=== PATIENT | female | born 1960 | race Caucasian/White ===

== ENCOUNTER → 2020-07-21 | Outpatient (CLI) | payer MEDICARE, OTHER ==
[~2020-07-21] MED LIST: ASPIRIN 325MG325 MG PO; ATORVASTATIN CA20 MG PO; BACTROBAN OINT22 GM TD; CLINDAMYCIN HC300 MG PO; COREG 25MG TAB25 MG PO; CYCLOBENZAPRINE10 MG PO; DICYCLOMINE HCL20 MG PO; ECOTRIN81 MG PO; HYDROCODON-ACE1 EAC2 PO; HYDROCODON-ACE1 EAC4 PO; K-TAB ER20 MEQ PO; LASIX40 MG PO; LEVOFLOXACIN500 MG PO; MAGNESIUM400 M2 PO; NITROSTAT0.4 MG SL; PERCOCET 5-3251 EACH PO; PERCOCET 5/325 T1 EA PO; PLAVIX 75 MG TA75 MG PO; PRINIVIL20 MG PO; PROMETHAZINE12.5 M1 PO; RANEXA500 MG PO; REMERON15 MG PO; VANCOMYCIN HCL1.5 GM IV; VITAMIN D210 MCG PO; XANAX1 MG PO; XARELTO10 MG PO; ZOFRAN 4 MG TAB4 MG PO; ZOFRAN ODT4 MG PO
[2020-07-21 12:52] LABS: HEMOGLOBIN 12.9 gm/dl (12.3-15.3); RED BLOOD COUNT 3.81 M/UL (4.00-5.10); WHITE BLOOD COUNT 6.2 K/UL (4.5-11.0)
== END ==
LOC: LAB 11:56
PROVIDERS: Internal Medicine Cardiovascular Disease
DX: Z45.02 Encounter for adjustment and management of automatic implantable cardiac defibrillator (principal); I25.10 Atherosclerotic heart disease of native coronary artery without angina pectoris; I50.22 Chronic systolic (congestive) heart failure; I10 Essential (primary) hypertension; I25.5 Ischemic cardiomyopathy; R91.8 Other nonspecific abnormal finding of lung field; Z20.822 Contact with and (suspected) exposure to COVID-19
CPT/HCPCS: 36415; 71046; 80048; 85025; U0003

== ENCOUNTER → 2020-07-23 | Outpatient (CLI) | payer MEDICARE, OTHER | LOC: CATH 09:51 | DX: Z45.02 Encounter for adjustment and management of automatic implantable cardiac defibrillator (principal); I25.5 Ischemic cardiomyopathy; I11.0 Hypertensive heart disease with heart failure; I50.22 Chronic systolic (congestive) heart failure; I49.5 Sick sinus syndrome; I25.10 Atherosclerotic heart disease of native coronary artery without angina pectoris; F17.210 Nicotine dependence, cigarettes, uncomplicated; E78.5 Hyperlipidemia, unspecified; I25.2 Old myocardial infarction; J44.9 Chronic obstructive pulmonary disease, unspecified; F11.20 Opioid dependence, uncomplicated; F32.9 Major depressive disorder, single episode, unspecified; K21.9 Gastro-esophageal reflux disease without esophagitis; Z95.1 Presence of aortocoronary bypass graft; Z98.1 Arthrodesis status; Z98.890 Other specified postprocedural states; Z88.5 Allergy status to narcotic agent; Z88.0 Allergy status to penicillin; Z88.1 Allergy status to other antibiotic agents; Z79.82 Long term (current) use of aspirin; Z79.02 Long term (current) use of antithrombotics/antiplatelets; Z79.899 Other long term (current) drug therapy | CPT/HCPCS: 93641; 99152; 99153; C1721; J1200; J1644; J2250; J3010; J3370; J7040; J7050 ==

== ENCOUNTER → 2020-08-30 | Outpatient (CLI) | payer MEDICARE, OTHER ==
[2020-08-30 17:09] LABS: HEMOGLOBIN 12.1 gm/dl (12.3-15.3); RED BLOOD COUNT 3.69 M/UL (4.00-5.10); WHITE BLOOD COUNT 5.1 K/UL (4.5-11.0)
--- NOTE | 2020-08-30 17:55 | NUR ---
18g x 8 cm midline placed in the right basilic vein. Aspirates and flushes well. PICC line ordered changed to midline per conversation with Dr. Bnigham. Labs reviewed.
== END ==
LOC: OPSV 15:33 → LAB 15:33 → EROP 15:33
PROVIDERS: Internal Medicine Cardiovascular Disease
DX: T82.7XXA Infection and inflammatory reaction due to other cardiac and vascular devices, implants and grafts, initial encounter (principal); I11.0 Hypertensive heart disease with heart failure; I50.22 Chronic systolic (congestive) heart failure; Z86.14 Personal history of Methicillin resistant Staphylococcus aureus infection
CPT/HCPCS: 80048; 85025; 87040; C1751

== ENCOUNTER → 2020-08-31 | Outpatient (CLI) | payer MEDICARE, OTHER | LOC: CATH 12:22 | DX: T81.30XA Disruption of wound, unspecified, initial encounter (principal); G89.18 Other acute postprocedural pain; I11.0 Hypertensive heart disease with heart failure; I50.22 Chronic systolic (congestive) heart failure; I25.5 Ischemic cardiomyopathy; I25.2 Old myocardial infarction; I25.10 Atherosclerotic heart disease of native coronary artery without angina pectoris; I49.5 Sick sinus syndrome; E78.5 Hyperlipidemia, unspecified; J44.9 Chronic obstructive pulmonary disease, unspecified; K21.9 Gastro-esophageal reflux disease without esophagitis; M19.90 Unspecified osteoarthritis, unspecified site; F11.20 Opioid dependence, uncomplicated; F17.210 Nicotine dependence, cigarettes, uncomplicated; Z20.822 Contact with and (suspected) exposure to COVID-19; Z95.1 Presence of aortocoronary bypass graft; Z95.810 Presence of automatic (implantable) cardiac defibrillator | CPT/HCPCS: 33223; 87070; 87075; 87205; 93641; 99152; 99153; J1170; J1200; J2250; J2270; J3010; J3370; J7040; J7050; U0002 ==

== ENCOUNTER → 2020-09-16 | Outpatient (CLI) | payer MEDICARE, OTHER | LOC: OPSV 14:17 | DX: Z45.02 Encounter for adjustment and management of automatic implantable cardiac defibrillator (principal) | CPT/HCPCS: G0463 ==

== ENCOUNTER 2020-11-11 17:35 | Inpatient (IN) | payer MEDICARE, OTHER ==
[~2020-11-11] VITALS: Ht 157.5 cm; Wt 59.0 kg
[~2020-11-11 17:35] MED LIST changes: -HYDROCODON-ACE1 EAC2 PO; -ZOFRAN 4 MG TAB4 MG PO
[2020-11-11 19:00] LABS: HEMOGLOBIN 7.7 gm/dl (12.3-15.3); RED BLOOD COUNT 2.35 M/UL (4.00-5.10); WHITE BLOOD COUNT 4.9 K/UL (4.5-11.0)
[2020-11-12] MEDS ORDERED: HYDROCODON-ACE1 EAC2 PO (04:05)
[2020-11-12] MEDS ORDERED: CYCLOBENZAPRINE10 MG PO (04:08)
[2020-11-12] MEDS ORDERED: ZOFRAN 4 MG TAB4 MG PO (04:12)
[2020-11-12 05:58] LABS: WHITE BLOOD COUNT 4.7 K/UL (4.5-11.0)
[2020-11-12 06:05] LABS: HEMOGLOBIN 10.5 gm/dl (12.3-15.3); RED BLOOD COUNT 3.42 M/UL (4.00-5.10)
[2020-11-12 06:25] LABS: BUN/CREATININE RATIO 32 (0-10)
[2020-11-12 18:22] LABS: HEMOGLOBIN 11.2 gm/dl (12.3-15.3)
--- NOTE | 2020-11-12 19:28 | NUR ---
EDUCATED PATIENT ON IMPORTANCE TO WAIT FOR STAFF TO ASSIST USING THE BED SIDE TOLIET. PATIENT UNDERSTANDS.
[2020-11-13 03:07] LABS: HEMOGLOBIN 10.3 gm/dl (12.3-15.3); RED BLOOD COUNT 3.41 M/UL (4.00-5.10)
[2020-11-13 03:17] LABS: WHITE BLOOD COUNT 5.9 K/UL (4.5-11.0)
[2020-11-13 03:36] LABS: BUN/CREATININE RATIO 27 (0-10)
--- NOTE | 2020-11-13 16:15 | NUR ---
REPORT CALLED TO SEAN DOMINGUEZ ON [facility].
[2020-11-14 04:41] LABS: HEMOGLOBIN 10.4 gm/dl (12.3-15.3); RED BLOOD COUNT 3.39 M/UL (4.00-5.10); WHITE BLOOD COUNT 5.7 K/UL (4.5-11.0)
[2020-11-14 05:15] LABS: BUN/CREATININE RATIO 16 (0-10)
[2020-11-14 20:13] LABS: HEMATOCRIT 29.7 % (34.0-46.6)
[2020-11-15] MEDS ORDERED: HYDROCODON-ACE1 EAC2 PO (12:11)
== END 2020-11-15 15:54 | disposition home health service (06) | DRG 811 ==
LOC: ER1 17:35 → CDU 21:42 → PROG CARE 11-12 16:44 → M/S 11-13 16:36
PROVIDERS: Emergency Medicine; Internal Medicine Infectious Disease; ADMIT Internal Medicine
DX: D62 Acute posthemorrhagic anemia (principal); E43 Unspecified severe protein-calorie malnutrition; S32.511A Fracture of superior rim of right pubis, initial encounter for closed fracture; S32.9XXA Fracture of unspecified parts of lumbosacral spine and pelvis, initial encounter for closed fracture; E87.1 Hypo-osmolality and hyponatremia; N17.9 Acute kidney failure, unspecified; I50.22 Chronic systolic (congestive) heart failure; D64.89 Other specified anemias; E86.0 Dehydration; E83.42 Hypomagnesemia; F10.10 Alcohol abuse, uncomplicated; G89.4 Chronic pain syndrome; F12.20 Cannabis dependence, uncomplicated; I25.5 Ischemic cardiomyopathy; I25.10 Atherosclerotic heart disease of native coronary artery without angina pectoris; Z20.822 Contact with and (suspected) exposure to COVID-19; I11.0 Hypertensive heart disease with heart failure; I48.91 Unspecified atrial fibrillation; I73.9 Peripheral vascular disease, unspecified; K58.9 Irritable bowel syndrome, unspecified; M81.0 Age-related osteoporosis without current pathological fracture; I95.9 Hypotension, unspecified; Z96.612 Presence of left artificial shoulder joint; Z96.611 Presence of right artificial shoulder joint; Z96.642 Presence of left artificial hip joint; Z96.661 Presence of right artificial ankle joint; Z96.631 Presence of right artificial wrist joint; E87.6 Hypokalemia; F11.90 Opioid use, unspecified, uncomplicated; W18.30XA Fall on same level, unspecified, initial encounter; J44.9 Chronic obstructive pulmonary disease, unspecified; Z99.81 Dependence on supplemental oxygen; Z88.6 Allergy status to analgesic agent; Z95.810 Presence of automatic (implantable) cardiac defibrillator; Z95.1 Presence of aortocoronary bypass graft; Z79.01 Long term (current) use of anticoagulants; Z86.73 Personal history of transient ischemic attack (TIA), and cerebral infarction without residual deficits; Z90.49 Acquired absence of other specified parts of digestive tract; Z90.710 Acquired absence of both cervix and uterus; Z83.3 Family history of diabetes mellitus; Z88.0 Allergy status to penicillin; Z88.8 Allergy status to other drugs, medicaments and biological substances; Z68.23 Body mass index [BMI] 23.0-23.9, adult
CPT/HCPCS: 36415; 36430; 71045; 73502; 80048; 80053; 80061; 81001; 82272; 82550; 82553; 82607; 82746; 82747; 83540; 83550; 83605; 83735; 83874; 83930; 84100; 84132; 84439; 84443; 84484; 85014; 85018; 85025; 85045; 86140; 86850; 86900; 86901; 86920; 87040; 87086; 93005; 96374; 97110-GP-CQ; 97116-GP-CQ; 97162; 99284; C9113; G0378; G0480; J2405; J3475; J3480; J7030; P9016; Q9967; U0002